=== PATIENT | female | born 1950 | race Hispanic/Latino ===

== ENCOUNTER 2022-07-04 16:31 | Emergency (ER) | payer OTHER, MEDICARE | END 2022-07-04 18:16 | disposition home or self-care (01) | LOC: BURERS 16:31 | DX: S22.31XA Fracture of one rib, right side, initial encounter for closed fracture (principal); T16.1XXA Foreign body in right ear, initial encounter; E10.9 Type 1 diabetes mellitus without complications; E78.5 Hyperlipidemia, unspecified; W01.0XXA Fall on same level from slipping, tripping and stumbling without subsequent striking against object, initial encounter ==